=== PATIENT | female | born 1980 | race Caucasian/White ===

== ENCOUNTER 2021-01-18 11:55 | Emergency (ER) | payer MEDICAID ==
[~2021-01-18] VITALS: Ht 157.5 cm; Wt 76.0 kg
[2021-01-18 11:56] VITALS: BP 124/88
[2021-01-18] MEDS ORDERED: IBUPROFEN 600MG TABLET PO ONE (12:30)
[2021-01-18] MEDS ORDERED: IBUP-2029 MT (13:47)
== END 2021-01-18 14:20 | disposition home or self-care (01) ==
LOC: ER 12:07
DX: M54.5 Low back pain (principal); V49.49XA Driver injured in collision with other motor vehicles in traffic accident, initial encounter; Y93.89 Activity, other specified; Y92.410 Unspecified street and highway as the place of occurrence of the external cause
CPT/HCPCS: 72110; 81025; 99283